=== PATIENT | male | born 1955 | race Caucasian/White ===

== ENCOUNTER → 2020-01-13 09:50 | Outpatient (BNVA) | payer MEDICARE, SELFPAY | PROVIDERS: Family Provider Counselor Professional; Visit Provider Internal Medicine | DX: R94.6 Abnormal results of thyroid function studies (principal); R13.10 Dysphagia, unspecified; Z98.890 Other specified postprocedural states; Z87.19 Personal history of other diseases of the digestive system | CPT/HCPCS: 99203 ==

== ENCOUNTER → 2021-03-04 11:54 | Outpatient (BNVA) | payer MEDICARE, SELFPAY | PROVIDERS: Family Provider Counselor Professional; Visit Provider Surgery | DX: Z20.822 Contact with and (suspected) exposure to COVID-19 (principal) | CPT/HCPCS: 87635 ==

== ENCOUNTER 2021-03-08 05:38 | Day surgery (SDC) | payer MEDICARE, SELFPAY ==
[2021-03-07 14:25] VITALS: BMI 27.8
[2021-03-08] VITALS (17 sets, daily range): BP systolic 151–199; BP diastolic 72–111; PULSE 57–91; RESP 14–21; TEMP 36.2–36.8; O2SAT 89–98
--- NOTE | 2021-03-08 06:10 | W.PM.OPSUD ---
Surgery/Procedure H&P Update DATE OF PROCEDURE: March 08, 2021 DATE H&P PERFORMED: 02/14/21 H&P UPDATE INFORMATION: I have reviewed H&P completed within last 30 days, I have examined patient prior to procedure and No changes to prior documentation PREOP DIAGNOSIS: Left inguinal Hernia PRIMARY INDICATION FOR PROCEDURE: The same PLANNED PROCEDURE: Operation Date: 03/08/21 07:00 Proposed Procedures p Laparoscopic Inguinal Hernia Repair w/Mesh 12104 K40.90(Left) - Rodger Duncan MD
[2021-03-08] MEDS: acetaminophen 1,000 MG/100 ML PIGGYBACK 400 MG IV (06:30)
[2021-03-08] MEDS: sodium chloride 0.9% 1,000 ML 30 ML IV (06:59)
[2021-03-08] MEDS: clindamycin 900 MG/50 ML PREMIX 100 MG IV (07:07)
--- NOTE | 2021-03-08 07:54 | ANES.PREANE2 ---
Pre-Anesthetic Assessment Pre-Anesthetic Assessment: Height/Weight: Height 1.83 m Weight 92.986 kg Temp Pulse Resp BP Pulse Ox 98.2 F 57 L 18 163/92 98 03/08/21 06:02 03/08/21 06:02 03/08/21 06:02 03/08/21 06:02 03/08/21 06:02 Preop Diagnosis: Left inguinal Hernia Proposed Procedure: Operation Date: 03/08/21 07:00 Proposed Procedures p Laparoscopic Inguinal Hernia Repair w/Mesh 22509 K40.90(Left) - Rodger Duncan MD Was Beta Chris taken within 24 hours: N/A Was Clonidine taken within 24 hours: N/A Last intake: Intake Last Liquid Date 03/07/21 Last Liquid Time 18:00 Last Solid Date 03/07/21 Last Solid Time 18:00 Social: Social History: Tobacco (Chews, h/o smoking) and No alcohol Exam: Pre-Anes Outpt Exam: alert, oriented x 3 and regular rate & rhythm Airway: Submandibular: WNL Cervical ROM: WNL MP: 2 Dentition: False Pulmonary: Pulmonary: COPD CV/HEM: CV/HEM: HTN Metabolic: Metabolic: Thyroid Anesthetic Plan: ASA status: 3 Anesthesia: General Risk of > 500 ml blood loss (7ml/kg in children): No Meds/Allergies Current Medications: Current Medications Generic Name Dose Route Start Last Admin Trade Name Freq PRN Reason Stop Dose Admin Sodium Chloride 1,000 mls @ 30 ml s/hr 03/08/21 06:00 03/08/21 06:59 Sodium Chloride 0.9% IV 03/09/21 05:59 30 mls/hr .Q24H PORFIRIO Administration PFSH Anesthesia PFSH: Medical History BPH (benign prostatic hyperplasia) COPD (chronic obstructive pulmonary disease) Hernia inguinal hernia surgery Hypertension Knee fracture, right PTSD (post-traumatic stress disorder) Surgical History Hx of inguinal hernia surgery Family History Mother Diabetes Father Cancer brain and lung cancer Hypertension Social History Smoking and tobacco status: current every day smoker Quit status (tobacco): has quit using tobacco Year quit tobacco: quit 30 years ago Second hand smoke exposure: No Alcohol intake: former Data Anesthesia Cardiac Studies: No Data to Display
--- NOTE | 2021-03-08 09:07 | P.OP_ITS ---
Operative Report Date of procedure: March 08, 2021 Pre-op Diagnosis: Left inguinal Hernia Post-op diagnosis: other Post-op Diagnosis: LEFT GROIN HERNIA WITH DIRECT AND INDIRECT COMPONENETS Procedure Done: LAPAROSCOPIC LEFT INGUINAL HERNIA REPAIR WITH MESH PLACEMENT LAPAROSCOPIC EXCISION OF LIPOMA OF THE CORD Implants: 3 D LEFT LARGE MSH Specimens removed/disposition: HERNIA SAC AND LIPOMA OF THE CORD Surgeon: Rodger Duncan Printed Circuit Board Panels Deburrer: Ward Jeter lacey Donyhue Med student Alfred Palacios Anesthesia: General (GETA ICE BAG ASSEMBLER Florian) Estimated blood loss (mL): 10 IV fluids (mL): 800 Urine output (mL): 150 Condition: stable Disposition: same day Brief History: Symptomatic left groin hernia Procedure: Patient was identified in the holding area ,patient was transferred to the operating room where he was placed in supine position, with both arms were tucked, antibiotic was given with induction, endotracheal tube was placed per anesthesia, Dudley catheter was inserted by the circulating nurse and revealed clear urine, prep and drape of the abdomen was done under the usual sterile technique as well as the scrotal area. Time-out was done verifying the patient's name/date of /planned procedure destination after the procedure, all were in agreement. SCDs confirmed to be functioning, preoperative antibiotics administered per protocol, and beta shannon protocol was confirmed. A vertical skin incision of 1.2 cm was made with 11 blade knife through the supra umbilicus , incision was carried down to the subcutaneous tissue and deepened to identify the anterior fascia, two stay sutures were applied to the fascia, and safe entrance to the abdominal cavity was achieved, a Avina trocar technique safe entry to the abdominal cavity was achieved verified by using 10 mm zero degree laparoscopy, switched to a 30 degrees scope,low flow followed by a higher flow of CO2 gas up to 15 mmHg. There was no evidence of injury to intra-abdominal structures from the port entry, attention was deviated to both groins, there was a large direct hernia defect with herniation of peritoneum and preperitoneal fat was noted on the left side, two 5 mm ports were placed on the right and left lateral aspect of the abdomen slightly above the level of the umbilicus, under direct visualization, anesthesia 2% lidocaine local was injected at all trocar sites prior to incis ions. No hernia recurrence of the right groin. The peritoneum above the level of the iliopubic tract was incised to the left of the midline and dissection was performed to create a preperitoneal space medial to lateral aspect up to anterior superior iliac spine on the left side. Dissection was continued onto the medial aspect and the left spermatic was identified, there was evidence of direct inguinal hernia .the sac was dissected. As it applied medial to the right inferior epigastric vessels/ dissection was performed to clear the space lateral to the spermatic cord and dorsomedial to it, the hernia sac was reduced and retracted far back, so there was an evidence of a small indirect inguinal hernia that was dissected in addition to a large lipoma of the cord that was excised and sent for permanent pathology. Large lipoma was dissected and sent for pathology. Some adhesions were noticed towards the sigmoid colon tethering the inferior leaflet of the peritoneum sharply were dissected without violating the colon, minor oozing was appreciated and 5 mm clips were applied under direct visualization. Then a large left 3-D mesh was rolled and placed into the abdominal cavity through the Avina port, after the mesh was introduced it was positioned to lie in the myopectineal orifice and the mesh was unrolled and this covered the entire my myope pectineal orifice. Intra-abdominal pressure was dropped to 12 mmHg to help placement of the mesh good position On the lateral aspect of the mesh extended up to the anterior superior iliac spine on the medial aspect the mesh crossed the midline onto the RIGHT side, then using absorbable tacks, placed above the iliopubic tract onto the rectus abdominis muscle on the medial aspect and also to the lateral abdominal wall superomedial to the sacroiliac spine, then the mesh was also anchored to the pubis and the Prem's ligament inferiorly. The peritoneal leaflets were then brought together to cover the mesh and isolated from the other viscera, extra tacks were used to secure the peritoneum in good position. Final look demonstrated good hemostasis and the mesh in good position and no evidence of bleeding or injury A total of 20 mL Exparel 40 ml Normal saline 20 ml bupivacaine 0.25% were injected at the remaining of the tacks site and trocar sites as well Final look demonstrated good hemostasis.Then the fascia on the supra umbilical fascial defect was closed using #1 PDS sutures under direct visualization using fascial closure device Jim Ruth.All ports were removed,then the abdomen was desufflated. All skin incisions were closed with 4-0 Monocryl subcuticular suture and Dermabond was applied. Supraumbilical incision was closed using deep subdermal 2-0 Vicryl followed by 4-0 Monocryl. The patient tolerated the procedure well, Dudley catheter was taken out ,got extubated and was transferred to the recovery area in stable condition All counts of instruments, needles and sponges were completed I was present for the whole entire procedure
--- NOTE | 2021-03-08 09:40 | P.PCN_ITS ---
PACU note PACU note: VSS, Good respiratory effort, report to HEALTH PROMOTER Post-Anesthesia Exam: awake
--- NOTE | 2021-03-08 09:40 | PM.PACU ---
PACU note PACU note: VSS, Good respiratory effort, report to MEDICAL CHEMIST Post-Anesthesia Exam: awake
[2021-03-08] MEDS: metoprolol tartrate 1 mg/1 mL SDV 5 mL 5 MG IVP (09:50)
--- NOTE | 2021-03-08 10:05 | ANE.PACU2 ---
Inpatient post-anesthesia follow up: Airway intact: Yes Vital signs: Temperature 97.2 F Pulse Rate 66 Respiratory Rate 14 Blood Pressure 199/110 Pulse Oximetry 94 Oxygen Delivery Me thod Room Air Oxygen Flow Rate 5 Fraction of Inspir ed Oxygen Hydration adequate: Yes Nausea and vomiting: No Pain level: 3 Mental status: Baseline
[2021-03-08] MEDS: hyDRALAzine 20 mg/mL INJ 1 mL 10 MG IVP (10:12)
[2021-03-08] MEDS: fentaNYL 50 mcg/mL INJ 2mL IVP ×2 (10:19→10:24)
[2021-03-08] MEDS: TRAMadol 50 mg Tablet PO (11:19)
== END 2021-03-08 11:30 | disposition home or self-care (01) ==
PROVIDERS: PCP Nurse Practitioner Family; Visit Provider Surgery
PROC: (CPT 49650; principal; 2021-03-08 07:00)
DX: K40.90 Unilateral inguinal hernia, without obstruction or gangrene, not specified as recurrent (principal); D17.6 Benign lipomatous neoplasm of spermatic cord; F17.220 Nicotine dependence, chewing tobacco, uncomplicated; J44.9 Chronic obstructive pulmonary disease, unspecified; I10 Essential (primary) hypertension; N40.0 Benign prostatic hyperplasia without lower urinary tract symptoms; Z82.49 Family history of ischemic heart disease and other diseases of the circulatory system; Z83.3 Family history of diabetes mellitus; F17.210 Nicotine dependence, cigarettes, uncomplicated
CPT/HCPCS: 49505; 51702; 88302; 96374; C1781; C9290; J0330; J0360; J1100; J2405; J2704; J2710; J3010; J3490; J7030

== ENCOUNTER → 2023-02-22 16:06 | Outpatient (BNVA) | payer MEDICARE, SELFPAY | PROVIDERS: PCP Nurse Practitioner Family; Visit Provider Internal Medicine Cardiovascular Disease | DX: R94.39 Abnormal result of other cardiovascular function study (principal); R07.9 Chest pain, unspecified; I10 Essential (primary) hypertension; E78.5 Hyperlipidemia, unspecified; J44.9 Chronic obstructive pulmonary disease, unspecified; I49.3 Ventricular premature depolarization; Z87.891 Personal history of nicotine dependence; R94.31 Abnormal electrocardiogram [ECG] [EKG] | CPT/HCPCS: 93005; 99205 ==

== ENCOUNTER 2023-03-27 07:55 | Outpatient (CLI) | payer MEDICARE, MEDICAID, SELFPAY ==
--- NOTE | 2023-03-27 08:15 | USCV_ITS ---
Jm Robles Age: 67 Gender: M : 1955 Exam Date: 03/27/2023 08:16 Ordering Phys: Brinda Shi MD ([email or web address]) Technologist: CT Exam [place] [facility] [place] Indication: CP BP: 150 / 81 HR: 55 Rhythm: Sinus Technical Quality: Adequate MEASUREMENTS (Male / Female) Normal Values 2D ECHO LV Chamber Size 5.0 cm RV Chamber Size 3.1 cm LVOT Diameter 2.0 cm LV Ejection Fraction MOD 2C 59.1 % LV Ejection Fraction 2C AL 59.7 % LA Diameter 2.7 cm LA Width 4.3 cm LA Height 4.4 cm RA Width 4.0 cm RA Height 5.1 cm Aorta at Sinotubular Diameter 2.4 cm IVC Diameter 1.8 cm DOPPLER AV Peak Velocity 151.0 cm/s LVOT Peak Velocity 56.0 cm/s AV Area Cont Eq vti 1.1 cm squared AV Area Cont Eq pk 1.1 cm squared MV Area PHT 4.5 cm squared Mitral E to A Ratio 1.0 MV E' Velocity 50.0 cm/s Mitral E to MV E' Ratio 9.3 Mitral E to LV E' Lateral Ratio 10.3 Mitral E to LV E' Septal Ratio 8.5 TR Peak Velocity 125.3 cm/s TR Peak Gradient 6.3 mmHg TV Peak E Velocity 66.0 cm/s Right Atrial Pressure 3.0 mmHg Pulmonary Artery Systolic Pressu 9.3 mmHg PV Peak Velocity 92.0 cm/s FINDINGS Left Ventricle Left ventricle is normal in size. LV systolic function is normal with EF of 55 to 60%. No regional wall motion abnormalities are seen. Right Ventricle Normal in size and function Right Atrium Normal in size Left Atrium Dilated Mitral Valve Structurally normal mitral valve. Trace mitral regurgitation. Aortic Valve Structurally normal aortic valve. No significant stenosis or regurgitation Tricuspid Valve Trace tricuspid regurgitation. Insufficient TR jet to calculate RVSP Pulmonic Valve Not well visualized Pericardium Normal Aorta normal in size IVC Appears to be normal CONCLUSIONS LV systolic function is normal with EF of 55-60% Left atrial dilation Trace mitral regurgitation Trace tricuspid regurgitation No comparison studies are available. Ronnie Andersen MD (Electronically Signed) Final Date: 27 March 2023 11:39 S
[2023-03-27 09:09] VITALS: BMI 29.1
--- NOTE | 2023-03-27 09:10 | ECG_ITS ---
[facility] Test Date: 2023-03-27 Pat Name: Jm Robles Department: Room: Gender: Male Hospital Carrier: Paco May : 1955 Requested By: Brinda Shi Order Number: [id number] Shelly MD: Brinda Shi M.D. Interpretive Statements NAME OF STUDY: LEXISCAN SESTAMIBI STRESS TEST INDICATION: Chest Pain; Shortness of Breath, PROCEDURE: At the baseline, the EKG revealed sinus bradycardia with a first-degree AV block. Some nonspecific T wave changes. The baseline heart was 52 bpm with a blood pressue of 180/97 mm of Hg Lexiscan was infused over a period of 20 seconds. A total of 0.4 milligrams of Lexiscan was infused. The stress phase was continued for a total of 5 minutes. Heart rate at the end of the stress phase was 62 bpm with a blood pressure 147/90 mm of Hg. The EKG at the peak infusion revealed no significant changes. Sestamibi was injected 20 seconds after the Lexiscan infusion. Heart rate at the end of the recovery phase was 64 bpm with a blood pressure of 156/86 mm of Hg. CONCLUSION: 1. No significant EKG changes with the LexiScan infusion 2. No LexiScan induced chest pain or cardiac arrhythmia 3. Normal blood pressure and heart rate response 4. Sestamibi/sestamibi perfusion scan pending; see separate report. Electronically Signed On 04-05-2023 11:18:40 CDT by Brinda Shi M.D. [email or web address]
--- NOTE | 2023-03-27 09:10 | NMCV_ITS ---
NM pedro perf SPECT r/s* [id number] Jm Robles Age: 67 Gender: M : 1955 Exam Date: 03/27/2023 10:15 Ordering Phys: Brinda Shi MD ([email or web address]) Technologist: MITCH Johnson Exam Location: [facility] Indications: CORONARY ANGIOPLASTY STATUS STRESS TEST [facility] IMAGE PROTOCOL Rest/Stress 1 Lexiscan Day Radiopharmaceutical Dose (mCi) Administration Site Administered by Rest: Tc-99m 10.7 IV Ankur Zamora, ONION TIER Sestamibi Stress:Tc-99m 32.5 IV Ankur Zamora, ONION TIER Sestamibi Rest: 27-Mar-2023 60 Discovery 630 Stress: 27-Mar-2023 30 Discovery 630 0.4mg Lexiscan. Images obtained in supine and prone position. SPECT RESULTS Technical Quality: Excellent Raw Data Analysis: Normal Image Corrections: No attenuation or motion correction applied Summed Stress Score: 11 Summed Rest Score: 14 Summed Difference Score: 1 PERFUSION FINDINGS There is a large sized, partially reversible perfusion defect noted in the inferior wall. This is consistent with large area of prior infarct with significant christine-infarct ischemia in the RCA territory. Medium sized areas of fixed perfusion defects noted in the apical and inferolateral cruz. This represents medium sized areas of prior infarcts in LAD and left circumflex artery territories. FUNCTIONAL RESULTS (calculated via Gated SPECT) Stress Image LV EF (%): 63 Stress EDV (mL):139 TID: 1.05 Stress ESV (mL):51 FUNCTIONAL FINDINGS: There is normal left ventricular systolic function. IMPRESSIONS 1. Abnormal myocardial perfusion imaging with large sized prior infarcts with significant christine-infarct ischemia noted in the RCA territory 2. Medium sized areas of prior infarct seen in the LAD and Left circumflex artery territories 3. LV systolic function is normal Ronnie Andersen MD (Electronically Signed) Final Date: 29 March 2023 09:45 S
[2023-03-27] MEDS: regadenoson 0.4 Mg/5 ml Syringe IVP (10:53)
[2023-03-27 11:10] VITALS: BP 156/86; PULSE 64
== END 2023-03-27 07:56 | disposition home or self-care (01) ==
LOC: RAD 07:57 → CCL 09:09 → CDL 09:09
PROVIDERS: PCP Nurse Practitioner Family; Visit Provider Internal Medicine Cardiovascular Disease
DX: R07.9 Chest pain, unspecified (principal); R06.09 Other forms of dyspnea; R06.02 Shortness of breath; I25.2 Old myocardial infarction; Z98.61 Coronary angioplasty status; I51.7 Cardiomegaly
CPT/HCPCS: 36415; 78452; 93017; 93306; 96374; A9500; J2785

== ENCOUNTER → 2023-04-12 10:43 | Outpatient (BNVA) | payer MEDICARE, MEDICAID, SELFPAY | PROVIDERS: PCP Nurse Practitioner Family; Visit Provider Nurse Practitioner Family | DX: R07.9 Chest pain, unspecified (principal); R00.1 Bradycardia, unspecified | CPT/HCPCS: 93005; 99214 ==

== ENCOUNTER 2023-04-25 07:14 | Outpatient (CLI) | payer MEDICARE, MEDICAID, SELFPAY ==
[2023-04-25] VITALS (15 sets, daily range): BP systolic 144–190; BP diastolic 78–113; PULSE 55–81; RESP 12–21; TEMP 36.8; O2SAT 94–97; BMI 29.9
--- NOTE | 2023-04-25 06:00 | XACV_ITS ---
Exam Room: 2 Ht: 183 cm Wt: 100 kg BSA: 2.28 m2 Gender: Male : 1955 Any Known Allergies: Penicillins Exam Priority: Routine Procedure(s): Procedure Description: Diagnostic procedure Procedure Description: Left Heart Catheterization Procedure Description: Left ventriculography Procedure Description: Coronary Angiography Diagnostic Cath Status: Elective Diagnostic Findings * The left main is a short medium caliber vessel with no significant stenotic lesions. * The left anterior descending artery is a medium caliber elongated vessel which appears to wrap around LV apex. The proximal artery was found to have minimal interval irregularities. No significant stenotic lesions were noted. The artery was found to be giving of proximal diagonal branch which appears to bifurcate proximally. The diagonal artery was found to have mild diffuse disease in the proximal segment.. * The left circumflex artery is a medium caliber nondominant vessel which has found an ostial around 30% narrowing. It appears to bifurcate at the mid segment giving off 2 obtuse marginal branches. No significant stenotic lesions were noted. The AV groove branch was found to be very rudimentary. * The right coronary artery is a medium caliber dominant vessel which was found to have minimal intimal irregularities in the proximal segment. No significant extremity lesions are noted. Conclusions 1. 67-year-old white male with multiple risk factors for coronary disease including strong family history for premature atherosclerotic heart disease, presenting with a new onset of chest pain and an abnormal Myocardial perfusion imaging. For further evaluation of his coronary status, a cardiac catheterization was recommended. Patient underwent left heart catheterization with left and right coronary angiogram and LV angiogram today. The findings are as follows. 2. 1. Short left main. 2. Mild coronary artery disease, mostly involving the proximal segments of all the 3 coronary arteries. 3. LV ejection fraction of 65%. 4. Features of left ventricular diastolic dysfunction with an LVEDP of 23 mmHg. Based on the angiogram findings, it was opted to treat him medically. Diagnostic RX Recommendation: medical therapy and/or counseling LV EDP: 23 mmHg Ventriculography Ejection Fraction: 65.0 % Left Ventriculography Findings: * The LV gram was performed in the EVANS projection. LV cavity patient with normal size. The LV ejection fraction was within normal limits. LVEDP was 23 which went up to 24 following the LV angiogram. Pressures Phase:Rest AO : 143 / 80 ( 108 ) @ 9:43:00 AM 129 / 73 ( 97 ) @ 9:45:00 AM 197 / 40 ( 98 ) @ 9:46:00 AM 187 / 77 ( 119 ) @ 9:51:00 AM 177 / 78 ( 114 ) @ 9:51:00 AM LV : 175 / -4 / 23 @ 9:50:00 AM 176 / -1 / 25 @ 9:50:00 AM 174 / -1 / 24 @ 9:51:00 AM Valves Phase:DefaultPhase AV : 0.0 @ 10:07:48 AM 0.0 @ 10:07:48 AM AV Mean Gradient: 0.0 @ 10:07:48 AM 0.0 @ 10:07:48 AM Clinical Evaluation EBL: 5mL-10mL Procedural Details Pre-Procedure Time Out. Identified patient by full name and date of as verbalized by the patient/guarantor. Does the consent match the physician's order: Yes. Accurate & Complete Informed Consent: Yes. Inpatient/Outpatient History & Physical on Chart: Yes. If H&P is completed, is and addenduem needed: No; If yes, is the addendum complete: N/A. Visualize and Verify Site with Patient/Guarantor: N/A. Relevant Radiology Images available: Yes. Pre-op teaching completed and patient verbalized understanding. The risks, benefits, and alternatives of sedation and/or procedure were discussed by physician. The patient agrees to continue. Procedure started. Current Diagnosis : Chest Pain. [facility] Clinical Fraility Score: 3: Managing Well. Can Patcher Indications: Worsening Angina. Chest Pain Symptom Assessment: Typical Angina Symptoms. Current diagnosis: Chest Pain. PERRLA. Strong, equal hand mobile service rv technician bilaterally. Lungs clear x 5 lobes. IV Site on Arrival: 20 gauge in the right anticubital. IV Fluids: 0.9% NaCl at KVO. 0 mL infused prior to lab clerk. Pre Procedural Pulses: bilateral dorsalis pedis was 2+. Pre Procedural Pulses: bilateral posterior tibial was 2+. Pre Procedural Pulses: bilateral radial was 3+. Oxygen started at 2liters/min via nasal canula. right groin was prepped with chloroprep then draped in the usual sterile fashion. right radial was prepped with chloroprep then draped in the usual sterile fashion. Baseline sample Acquired. HR: 51 BPM. Physician arrived. Physician scrubbed in. Immediate Pre-Procedure Time Out. Correct Patient: Yes; Correct Procedure: Yes; Correct Site: Yes; Correct Patient Position: Yes; Correct Supplies: Yes; Dried Flammable Prep: Yes; Blood Products Available: N/A;. Lidocaine 1% infiltrated to the right radial. Arterial access obtained. A 5 vietnamese Vin catheter in over wire. Multiple views taken of left coronary artery. Catheter redirected to the RCA. Multiple views taken of right coronary artery. Catheter removed over the exchange wire. A 5 vietnamese Angled Pig catheter in over wire. EDP Sample taken: LV 175/-5,23; HR: 57 BPM; SpO2: 97%. LV gram performed in EVANS @ 10 mL/second for a total of 30 mL. EDP Sample taken: LV 176/-2,25; HR: 58 BPM; SpO2: 97%. Pullback taken: LV 174/-2,24; AO 187/77(119); Mean: 0mmHg, Peak to Peak: 0mmHg, SEP: 5sec/min; HR: 62 BPM; SpO2: 97%. Catheter removed over the exchange wire. Physician review of cine films. Physician scrubbed out. A TR Band was successful obtaining hemostatsis at the Right Radial artery insertion site. Arterial sheath flushed and connected to tranducer and pressure bag with heparinized saline. Post Procedure: Pulses reassessed and unchanged. PERRLA. Strong, equal hand mobile service rv technician bilaterally. No VTE prophylaxis required. Medication's Wasted: Heparin = 1000 units. Medication's Wasted: Lidocaine 1% = 2 mL. Medication's Wasted: Other = Fentanyl 50mcg Versed 1 mg. Total IV fluids: 50 mL. Complications: None. Estimated blood loss: 5mL-10mL. Responsiveness - Normal response to verbal stimuli; alert and oriented, PERRLA. Airway - Unaffected, no intervention required; spontaneous ventilation. Circulation: W/N/L, pulses unchanged. Nausea/Vomiting: No. Procedure completed. Patient transferred by wheelchair to CPRU. Vital chart was stopped. Access Site Site: Right Radial artery Sheath Size: 6 Fr Hemostasis Method: TR Band Hemostasis Success: Successful Procedure Medications Start: 9:31 AM Stop: 9:31 AM Medication: Versed Amount: 1 mg Route: I.V. Start: 9:31 AM Stop: 9:31 AM Medication: Fentanyl Amount: 50 mcg Route: I.V. Start: 9:37 AM Stop: 9:37 AM Medication: Nitrogylcerin Amount: 200 mcg Route: I.A. Start: 9:38 AM Stop: 9:38 AM Medication: Verapamil Amount: 5 mg Route: I.A. Start: 9:38 AM Stop: 9:38 AM Medication: Hydralazine Amount: 10 mg Route: I.V. Start: 9:42 AM Stop: 9:42 AM Medication: Heparin Amount: 5000 units Route: I.V. Start: 9:51 AM Stop: 9:51 AM Medication: Hydralazine Amount: 10 mg Route: I.V. I, the attending physician, have reviewed and verified all procedure medications. Yes, all medications given per verbal order History/Risk Factors Hypertension: Yes Dyslipidemia: Yes Peripheral Arterial Disease (PAD): No Myocardial Infarction (MD): No Obesity: No Renal Disease: No Tobacco Use: Former Prior Interventions PCI: No CABG: No Valve Surgery: No Report Signatures Finalized by Dr Brinda Shi MD [facility] on 04/25/2023 02:49 PM
[2023-04-25 08:04] LABS: Basophils % 0.6 %; Eosinophils # 0.1 10^3/uL (0.0-0.8); Eosinophils % 1.3 %; Hematocrit 45.5 % (37-53); Lymphocytes # 2.4 10^3/uL (0.8-4.8); Lymphocytes % 32.9 %; Mean Corpuscular HGB Conc 31.9 g/dL (30-55); Mean Corpuscular Hemoglobin 27.8 pg (27-33); Mean Corpuscular Volume 87.3 fl (82-101); Mean Platelet Volume 10.8 fL (7.4-10.4); Monocytes # 0.5 10^3/uL (0.2-0.9); Monocytes % 7.1 %; Neutrophils # 4.17 10^3/uL (1.8-7.7); Neutrophils % 57.8 %; Nucleated Red Blood Cells % 0 %; Platelet Count 202 10^3/cmm (157-399); Red Blood Count 5.21 10^6/uL (3.85-5.65); Red Cell Distribution Width 14.7 % (12.1-15.1)
[2023-04-25] MEDS: diphenhydrAMINE 50 mg Capsule PO (08:09)
[2023-04-25 08:16] LABS: Anion Gap 12.8 (5-19); Blood Urea Nitrogen 13 mg/dL (8-23); Calcium 9.7 mg/dL (8.5-10.5); Carbon Dioxide 29 mmol/L (22-29); Chloride 104 mmol/L (98-107); Glomerular Filtration Rate 66.4 mL/min (90-130); Glucose 102 mg/dL (65-115); Osmolality Calculated 294 mOsm/kg (285-295); Potassium 3.8 mmol/L (3.5-5.1); Sodium 142 mmol/L (136-145)
--- NOTE | 2023-04-25 08:16 | P.HPUD_ITS ---
Surgery/Procedure H&P Update DATE OF PROCEDURE: April 25, 2023 DATE H&P PERFORMED: 04/12/23 H&P UPDATE INFORMATION: I have reviewed H&P completed within last 30 days, I have examined patient prior to procedure and No changes to prior documentation PREOP DIAGNOSIS: ashd PRIMARY INDICATION FOR PROCEDURE: Patient with a strong family history of premature atherosclerotic heart disease, presenting with increasing episodes of chest pains. Abnormal Myocardial perfusion imaging. History of hypertension and dyslipidemia. PLANNED PROCEDURE: Operation Date: 04/25/23 08:30 Proposed Procedures p [facility] [id number],R94.39,R07.9(Left) - Brinda Shi MD PATIENT REASSESSED PRIOR TO SEDATION, WITH NO CHANGE NOTED: Yes PHYSICAL EXAM: alert, oriented x 3, clear to auscultation bilaterally, regular rate & rhythm and operative site marked AIRWAY EVAL/ANESTHESIA PLAN: normal airway, see other exam findings, ASA III, Monitored Anesthesia, Local Anesthesia, Risks, benefits & alternatives of sedation and/or procedure discussed and Patient agrees to continue as planned
[2023-04-25] MEDS: amlodipine 5 mg Tablet PO (08:34)
== END 2023-04-25 07:15 | disposition home or self-care (01) ==
PROVIDERS: PCP Nurse Practitioner Family; Visit Provider Internal Medicine Cardiovascular Disease
DX: I25.10 Atherosclerotic heart disease of native coronary artery without angina pectoris (principal); Z82.49 Family history of ischemic heart disease and other diseases of the circulatory system; I10 Essential (primary) hypertension; E78.5 Hyperlipidemia, unspecified; Z87.891 Personal history of nicotine dependence; N40.0 Benign prostatic hyperplasia without lower urinary tract symptoms; J44.9 Chronic obstructive pulmonary disease, unspecified
CPT/HCPCS: 36415; 80048; 85025; 93458; 96361; 96365; 96367; 99152; 99153; C1769; C1887; C1894; J0360; J1644; J2250; J3010; J3490; J7030; Q0163; Q9967

== ENCOUNTER → 2023-05-02 10:24 | Outpatient (BNVA) | payer MEDICARE, MEDICAID, SELFPAY | PROVIDERS: PCP Nurse Practitioner Family; Visit Provider Nurse Practitioner Family | DX: I25.10 Atherosclerotic heart disease of native coronary artery without angina pectoris (principal); Z87.891 Personal history of nicotine dependence; I10 Essential (primary) hypertension; R07.9 Chest pain, unspecified | CPT/HCPCS: 36415; 80048; 85610; 99214 ==

== ENCOUNTER 2025-02-27 08:50 | Outpatient (CLI) | payer MEDICARE, MEDICAID, SELFPAY ==
--- NOTE | 2025-02-27 08:59 | XR_ITS ---
WS: [id number] Exam: XR shoulder LT min 2V* [id number] Date/Time of Exam: 02/27/2025 8:59 AM Reason For Exam: left shoulder pain DLP: No fracture noted. Degenerative change at the AC joint. Slight superior displacement of the distal clavicle suspicious for a low-grade separation. Mild DJD of the glenohumeral joint. Normal soft tissues. XR/XR shoulder LT min 2V* [id number] IMPRESSION: 1. Superior displacement of the distal clavicle suspicious for a low-grade sepa ration. 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 Recommendation: Radiographic evaluation of the AC joints with and without weigh tbearing might be considered for further work-up.
== END 2025-02-27 08:51 | disposition home or self-care (01) ==
LOC: RAD 08:53
DX: M25.512 Pain in left shoulder (principal); E78.5 Hyperlipidemia, unspecified; I10 Essential (primary) hypertension; J44.9 Chronic obstructive pulmonary disease, unspecified; R94.6 Abnormal results of thyroid function studies; Z12.5 Encounter for screening for malignant neoplasm of prostate
CPT/HCPCS: 73030; 80053; 80061; 84443; 85025; G0103

== ENCOUNTER → 2025-03-18 08:46 | Outpatient (BNVA) | payer MEDICARE, MEDICAID, SELFPAY | PROVIDERS: Visit Provider Physician Assistant | DX: M75.42 Impingement syndrome of left shoulder (principal); M25.612 Stiffness of left shoulder, not elsewhere classified; G89.29 Other chronic pain | CPT/HCPCS: 20610; 73030; 99203; J3301; J9999 ==

== ENCOUNTER → 2025-05-13 09:08 | Outpatient (BNVA) | payer MEDICARE, MEDICAID, SELFPAY | PROVIDERS: Visit Provider Physician Assistant | DX: M19.012 Primary osteoarthritis, left shoulder (principal); M75.42 Impingement syndrome of left shoulder | CPT/HCPCS: 99213 ==

== ENCOUNTER 2025-05-21 10:02 | Outpatient (CLI) | payer MEDICARE, MEDICAID, SELFPAY ==
--- NOTE | 2025-05-21 10:15 | MR_ITS ---
WS: [id number] MRI LEFT SHOULDER HISTORY: impingement of left shoulder COMPARISON: Radiographs 03/18/2025 TECHNIQUE: Multiplanar sequences of the shoulder joint are submitted. Mild AC joint narrowing. Hypertrophic osteophytes from the distal clavicle encroach upon the myotendinous portion of the supraspinatus. Mild synovitis. No significant subacromial impingement. No significant subacromial or subdeltoid fluid. No os acromion. Normal position and appearance of the biceps tendon in the bicipital groove. Slight high riding humeral head. Mild narrowing of the glenohumeral joint. No rotator cuff muscle atrophy or edema. No tendon tear. There is mild tendinopathy in the distal supraspinatus and the subscapularis tendons. Mild osteophytic ridging around the humeral head. Mild soft tissue thickening involving the axillary pouch with mild increased T2 signal. Coracohumeral ligament is normal. Poorly visualized inferior posterior labrum. Suspect there is probably a tear present. The remaining labrum is normal. MR/MR shoulder LT wo con* [id number] IMPRESSION: 1. Mild AC joint arthritis. 2. No rotator cuff tendon tear. 3. Mild tendinopathy in the distal supraspinatus and subscapularis tendons. 4. Findings of mild adhesive capsulitis. 5. Poorly visualized inferior labrum. Intrasubstance degeneration versus tear. Suspect there is probably a short segment tear involving the posterior inferio r labrum.
== END 2025-05-21 10:03 | disposition home or self-care (01) ==
LOC: RAD 10:02
PROVIDERS: Visit Provider Physician Assistant
DX: M75.42 Impingement syndrome of left shoulder (principal); M19.012 Primary osteoarthritis, left shoulder; M75.32 Calcific tendinitis of left shoulder; M75.02 Adhesive capsulitis of left shoulder
CPT/HCPCS: 73221